=== PATIENT | male | born 1980 ===

== ENCOUNTER 2017-11-01 19:05 | Emergency (ER) | payer BC ==
[2017-11-01 19:14] VITALS: BP 109/75
--- NOTE | 2017-11-01 20:24 | UC ---
Back Pain HPI - HPI Summary HPI Summary: 37 yo WM c/o acute back spasm exacerbation on left lumbar paraspinal region that has been worsening since last august doing yardwork and today it is becoming more painful even to ambulate. Pain now refractory to high doses of Ibuprofen. Previously treated with Flexeril and ibuprofen - History of Current Complaint Chief Complaint: UCBackPain Stated Complaint: BACK PAIN Time Seen by Provider: 11/01/17 19:22 Hx Obtained From: Patient Onset/Duration: Gradual Onset, Lasting Weeks, Still Present, Worse Since Timing: Constant, Lasting Weeks Severity Initially: Moderate Character: Dull, Aching, Throbbing, Spasmodic Aggravating Factor(s): Movement, Lifting, Bending, Walking, Nothing Alleviating Factor(s): Nothing Associated Signs And Symptoms: Negative: Tingling - Allergies/Home Medications Allergies/Adverse Reactions: Allergies Allergy/AdvReac Type Severity Reaction Status Date / Time No Known Allergies Allergy Verified 11/01/17 19:08 Home Medications: Home Medications Empagliflozin-Metformin HCl [Synjardy 12.5-1000 mg] 1 tab PO BID 11/01/17 [ History Confirmed 11/01/17] Levothyroxine TAB* [Synthroid TAB*] 175 mcg PO DAILY 11/01/17 [History Confirmed 11/01/17] Simvastatin [Zocor 5 MG-] 10 mg PO DAILY 11/01/17 [History Confirmed 11/01/17] Sitagliptin Phosphate [Januvia] 100 mg PO DAILY 11/01/17 [History Confirmed 03/15] PMH/Surg Hx/FS Hx/Imm Hx - Additional Past Medical History Additional PMH: h/o back spasm Previously Healthy: Yes - Surgical History Surgical History: None - Social History Alcohol Use: Rare Substance Use Type: None Smoking Status (MU): Never Smoked Tobacco Review of Systems Constitutional: Negative Skin: Negative Eyes: Negative ENT: Negative Respiratory: Negative Cardiovascular: Negative Gastrointestinal: Negative Genitourinary: Negative Motor: Negative Neurovascular: Negative Musculoskeletal: Decreased ROM, Other: - recurrent left back spasm Neurological: Negative Psychological: Negative Is Patient Immunocompromised?: No All Other Systems Reviewed And Are Negative: Yes Physical Exam Triage Information Reviewed: Yes Vital Signs: Initial Vital Signs Temp 36.6 C 11/01/17 19:12 Pulse 101 11/01/17 19:12 Resp 20 11/01/17 19:12 BP 109/75 11/01/17 19:12 Pulse Ox 100 11/01/17 19:12 Eye Exam: Normal ENT Exam: Normal Dental Exam: Normal Neck exam: Normal Neck: Positive: 1 Respiratory Exam: Normal Cardiovascular Exam: Normal Abdominal Exam: Normal Musculoskeletal Exam: Normal, Other - NO vertebral tendernss Musculoskeletal: Positive: Strength Limited @, ROM Limited @, Other: - left paraspinal muscle tenderness w/o radiculopathy Neurological Exam: Normal Psychological Exam: Normal Skin Exam: Normal Back Pain Course/Dx - Differential Dx/Diagnosis Provider Diagnoses: left lumbar back spasm Discharge - Discharge Plan Condition: Stable Disposition: HOME Prescriptions: Cyclobenzaprine TAB* [Flexeril 10 MG TAB*] 10 mg PO BID 5 Days #10 tab Ibuprofen TAB* [Motrin TAB* 600 MG] 600 mg PO Q8H PRN 7 Days #21 tab PRN Reason: pain Patient Education Materials: Muscle Spasm (ED) Referrals: Sandy Huber NP [Primary Care Provider] - Additional Instructions: as tolerated
== END 2017-11-01 20:10 | disposition home or self-care (01) ==
LOC: UCEAST 19:05
DX: M62.830 Muscle spasm of back (principal)
CPT/HCPCS: 99202; G0463